=== PATIENT | male | born 1970 | race African-American/Black ===

== ENCOUNTER 2022-05-18 08:05 | Emergency (ER) | payer OTHER ==
[~2022-05-18] VITALS: Ht 190.5 cm; Wt 113.6 kg
[2022-05-18] MEDS ORDERED: GABA-1216 PO (08:12)
[2022-05-18] MEDS ORDERED: LISI2.5T13 PO (08:12)
[2022-05-18] MEDS ORDERED: CYCL-448 PO (08:17)
[2022-05-18] MEDS ORDERED: HYDR-4723 PO (08:17)
[2022-05-18 08:48] LABS: COVID AG,FIA SOURCE NASAL SWAB
[2022-05-18] MEDS ORDERED: PredniSONE 20 MG TABLET PO ONE (09:30)
[2022-05-18 09:46] LABS: INFLUENZA TYPE A NEGATIVE FOR TYPE A (NEGATIVE)
[2022-05-18 10:13] LABS: INFLUENZA TYPE B POSITIVE FOR TYPE B (NEGATIVE)
[2022-05-18 10:15] VITALS: BP 168/104
[2022-05-18 10:18] LABS: BASOPHILS % (AUTO) 0.9 % (0.0-2.0); EOSINOPHILS % (AUTO) 9.2 % (1.0-6.0); HEMATOCRIT 46.3 % (41-53); HEMOGLOBIN 15.2 g/dL (13.5-17.5); LYMPHOCYTES # (AUTO) 1.8 K/uL (1.0-4.8); LYMPHOCYTES % (AUTO) 36.4 % (22.0-44.0); MEAN CORPUSCULAR HEMOGLOBIN 29.3 pg (26.0-34.0); MEAN CORPUSCULAR HGB CONC 32.7 G/dL (31.0-37.0); MEAN CORPUSCULAR VOLUME 90 fL (80-100); MONOCYTES # (AUTO) 0.5 K/uL (0.1-1.0); MONOCYTES % (AUTO) 8.9 % (2.0-9.0); NEUTROPHILS # (AUTO) 2.3 K/uL (1.8-7.7); NEUTROPHILS % (AUTO) 44.6 % (40.0-70.0); PLATELET COUNT (AUTO) 265 K/uL (150-450); RED BLOOD CELL COUNT(AUTO) 5.17 MIL/uL (4.50-5.90); RED CELL DISTRIBUTION WIDTH 14.1 % (11.5-14.5)
[2022-05-18 10:20] LABS: ANION GAP 4 mmol/L (8-16); CARBON DIOXIDE 30 mmol/L (22-29); CHLORIDE 102 mmol/L (98-107); CREATININE 0.95 mg/dL (0.60-1.30); GLOMERULAR FILTR. RATE CALC > 60 mL/min (>60); GLUCOSE,RANDOM 95 mg/dL (70-110); POTASSIUM 3.8 mmol/L (3.5-5.1); SODIUM SERUM 136 mmol/L (136-145); UREA NITROGEN, BLOOD 12 mg/dL (7-18)
[2022-05-18 10:26] LABS: ALANINE AMINOTRANSFERASE 28 U/L (12-78); ALBUMIN 4.2 g/dL (3.4-5.0); ALKALINE PHOSPHATASE 75 U/L (46-116); ASPARTATE AMINOTRANSFERASE 23 U/L (15-37); BILIRUBIN,TOTAL 0.5 mg/dL (0.1-1.0); TOTAL PROTEIN, SERUM 8.5 g/dL (6.4-8.2)
[2022-05-18] MEDS ORDERED: NIRM1TAB4 PO ×2 (10:43→11:22)
[2022-05-21] MEDS ORDERED: NALO25TA4 PO (16:55)
[2022-05-21] MEDS ORDERED: GABA600T10 PO (16:55)
[2022-05-23] MEDS ORDERED: AMLO-258 PO (10:18)
[2022-05-23] MEDS ORDERED: AMOX1TAB15 PO (10:18)
[2022-05-23] MEDS ORDERED: BENZ-227 PO (10:22)
== END 2022-05-18 11:10 | disposition home or self-care (01) ==
LOC: EMS 08:08
DX: U07.1 COVID-19 (principal); J33.9 Nasal polyp, unspecified; J10.1 Influenza due to other identified influenza virus with other respiratory manifestations; I10 Essential (primary) hypertension; Z88.6 Allergy status to analgesic agent; Z20.822 Contact with and (suspected) exposure to COVID-19
CPT/HCPCS: 99283; 87426; 80053; 85025; 87804; 36415; J7512

== ENCOUNTER 2022-07-04 06:32 | Emergency (ER) | payer OTHER ==
[~2022-07-04] VITALS: Ht 190.5 cm; Wt 100.0 kg
[~2022-07-04 06:32] MED LIST: AMLO-258 PO; AMOX1TAB15 PO; BENZ-227 PO; LISI2.5T13 PO
[2022-07-04 06:37] VITALS: BP 137/84
[2022-07-04] MEDS ORDERED: FLUTICASONE PROPIONATE 50 MCG/SPRAY 16 GM NASAL SPRAY NASAL ONE (08:00)
[2022-07-04] MEDS ORDERED: AMOX TR/POT CLAV 875 MG/125 MG TABLET PO ONE (08:00)
[2022-07-04] MEDS ORDERED: [UNRECOGNIZED DRUG - OTHER] PO ONE (08:00)
[2022-07-04] MEDS ORDERED: PredniSONE 20 MG TABLET PO ONE (08:00)
[2022-07-04] MEDS ORDERED: LORATADINE PO ONE (08:00)
[2022-07-04] MEDS ORDERED: P-EP-24 PO (08:08)
[2022-07-04] MEDS ORDERED: FLUT16SP NASAL (08:08)
[2022-07-04] MEDS ORDERED: AMOX1TAB16 PO (08:08)
[2022-07-04] MEDS ORDERED: PRED-554 PO (08:08)
== END 2022-07-04 08:24 | disposition home or self-care (01) ==
LOC: EMS 06:34
DX: J01.90 Acute sinusitis, unspecified (principal); J33.9 Nasal polyp, unspecified; I10 Essential (primary) hypertension; Z88.6 Allergy status to analgesic agent; Z98.890 Other specified postprocedural states
CPT/HCPCS: 99284; J7512

== ENCOUNTER 2024-09-05 15:12 | Emergency (ER) | payer OTHER ==
[~2024-09-05] VITALS: Ht 190.5 cm; Wt 120.5 kg
[~2024-09-05 15:12] MED LIST changes: +AMOX-457 PO; -AMOX1TAB15 PO; -BENZ-227 PO; +FLUT16SP NASAL; +P-EP-24 PO; +PRED-554 PO
[2024-09-05 15:16] VITALS: TEMP 98.4
[2024-09-05] MEDS ORDERED: HYDR-4062 PO (15:18)
[2024-09-05] MEDS ORDERED: GABA-1181 PO (15:18)
[2024-09-05] MEDS ORDERED: ATOR40TA28 PO (15:18)
[2024-09-05] MEDS ORDERED: CYCL-448 PO (15:18)
[2024-09-05] MEDS ORDERED: DOCU100C33 PO (15:18)
[2024-09-05 15:31] LABS: COVID AG,FIA SOURCE NASAL SWAB
[2024-09-05 15:48] LABS: BASOPHILS % (AUTO) 0.6 % (0.0-2.0); EOSINOPHILS % (AUTO) 7.3 % (1.0-6.0); HEMATOCRIT 44.5 % (41-53); HEMOGLOBIN 14.8 g/dL (13.5-17.5); LYMPHOCYTES # (AUTO) 2.2 K/uL (1.0-4.8); LYMPHOCYTES % (AUTO) 30.6 % (22.0-44.0); MEAN CORPUSCULAR HEMOGLOBIN 28.7 pg (26.0-34.0); MEAN CORPUSCULAR HGB CONC 33.3 G/dL (31.0-37.0); MEAN CORPUSCULAR VOLUME 86 fL (80-100); MONOCYTES # (AUTO) 0.5 K/uL (0.1-1.0); MONOCYTES % (AUTO) 7.3 % (2.0-9.0); NEUTROPHILS # (AUTO) 3.8 K/uL (1.8-7.7); NEUTROPHILS % (AUTO) 54.2 % (40.0-70.0); PLATELET COUNT (AUTO) 336 K/uL (150-450); RED BLOOD CELL COUNT(AUTO) 5.16 MIL/uL (4.50-5.90); RED CELL DISTRIBUTION WIDTH 14.2 % (11.5-14.5); WHITE BLOOD COUNT (AUTO) 7.1 K/uL (4.5-11.0)
[2024-09-05 15:55] LABS: ANION GAP 8 mmol/L (8-16); CALCIUM, TOTAL 8.8 mg/dL (8.8-10.5); CARBON DIOXIDE 26 mmol/L (22-29); CHLORIDE 103 mmol/L (98-107); CREATININE 0.96 mg/dL (0.60-1.30); GLOMERULAR FILTR. RATE CALC > 60 mL/min (>60); GLUCOSE,RANDOM 102 mg/dL (70-110); POTASSIUM 3.6 mmol/L (3.5-5.1); SODIUM SERUM 137 mmol/L (136-145); UREA NITROGEN, BLOOD 8 mg/dL (7-18)
[2024-09-05 15:57] LABS: SARS-COV2 (COVID) ANTIGEN,FIA Negative (Negative)
[2024-09-05 16:35] LABS: INFLUENZA TYPE A INVALID. RESUBMIT. (NEGATIVE)
[2024-09-05 16:41] LABS: INFLUENZA TYPE B INVALID. RESUBMIT. (NEGATIVE)
[2024-09-05] MEDS: PB/HYOSCY/ATR/SCOP/LIDO/MAALOX 55 ML BOTTLE PO ONE (18:18)
[2024-09-05] MEDS: ONDANSETRON 4 MG TABLET PO ONE (18:18)
[2024-09-05] MEDS: ALBUTEROL SULFATE 2.5 MG/0.5 ML NEB SOLUTION NEB ONE (18:32)
[2024-09-05] MEDS: IPRATROPIUM BROMIDE 0.5 MG/2.5 ML NEB SOLUTION NEB ONE (18:32)
[2024-09-05 18:35] VITALS: PULSE 89; RESP 20; O2SAT 98
[2024-09-05 18:50] VITALS: PULSE 89; RESP 20; O2SAT 100
[2024-09-05 18:53] LABS: APPEARANCE,URINE CLEAR (CLEAR); BILIRUBIN,URINE NEGATIVE (NEGATIVE); COLOR,URINE YELLOW (YELLOW); GLUCOSE, URINE (UA) NEGATIVE (NEGATIVE); KETONES,URINE NEGATIVE (NEGATIVE); LEUKOCYTE ESTERASE ,URINE NEGATIVE (NEGATIVE); NITRATE,URINE NEGATIVE (NEGATIVE); OCCULT BLOOD,URINE NEGATIVE (NEGATIVE); PROTEIN,URINE 30-70 mg/dL (NEGATIVE); SPECIFIC GRAVITIY, URINE 1.033 (1.003-1.030); UROBILINOGEN,URINE <=1.0 mg/dL (<=1.0)
[2024-09-05 19:00] VITALS: BP 141/95; PULSE 97; RESP 16; O2SAT 100
[2024-09-05] MEDS ORDERED: GUAIFDM PO (19:11)
[2024-09-05] MEDS ORDERED: ALBU18HF12 IH (19:11)
[2024-09-05] MEDS ORDERED: OMEP-148 PO (19:11)
== END 2024-09-05 19:32 | disposition home or self-care (01) ==
LOC: EMS 15:12
DX: J20.9 Acute bronchitis, unspecified (principal); K29.70 Gastritis, unspecified, without bleeding; I10 Essential (primary) hypertension; Z88.6 Allergy status to analgesic agent; Z79.899 Other long term (current) drug therapy; Z20.822 Contact with and (suspected) exposure to COVID-19; Z98.890 Other specified postprocedural states
CPT/HCPCS: 99285; 76700; 71045; 87635; 87426; 80048; 81003; 83690; 85025; 87804; 36415; 94640; Q0162; J7613

== ENCOUNTER 2024-09-17 13:23 | Emergency (ER) | payer OTHER ==
[~2024-09-17] VITALS: Ht 190.5 cm; Wt 127.2 kg
[~2024-09-17 13:23] MED LIST changes: +ALBU18HF12 IH; -AMOX-457 PO; +ATOR40TA28 PO; +CYCL-448 PO; +DOCU100C33 PO; -FLUT16SP NASAL; +GABA-1181 PO; +GUAIFDM PO; +HYDR-4062 PO; -LISI2.5T13 PO; +OMEP-148 PO; -P-EP-24 PO; -PRED-554 PO
[2024-09-17 13:38] VITALS: TEMP 97.9
[2024-09-17] MEDS: PB/HYOSCY/ATR/SCOP/LIDO/MAALOX 55 ML BOTTLE PO ONE (19:04)
[2024-09-17] MEDS: FAMOTIDINE 20 MG/2 ML VIAL IVP ONE (19:04)
[2024-09-17] MEDS: SODIUM CHLORIDE 0.9% 1,000 ML IV ONE (19:04)
[2024-09-17 19:06] VITALS: PULSE 80; RESP 20; O2SAT 97
[2024-09-17] MEDS: ALBUTEROL SULFATE 2.5 MG/0.5 ML NEB SOLUTION NEB ONE (19:06)
[2024-09-17] MEDS: IPRATROPIUM BROMIDE 0.5 MG/2.5 ML NEB SOLUTION NEB ONE (19:06)
[2024-09-17 19:21] VITALS: PULSE 81; RESP 20; O2SAT 99
[2024-09-17 19:32] LABS: BASOPHILS % (AUTO) 1.3 % (0.0-2.0); EOSINOPHILS % (AUTO) 9.2 % (1.0-6.0); HEMATOCRIT 46.2 % (41-53); HEMOGLOBIN 15.4 g/dL (13.5-17.5); LYMPHOCYTES # (AUTO) 2.8 K/uL (1.0-4.8); MEAN CORPUSCULAR HEMOGLOBIN 29.4 pg (26.0-34.0); MEAN CORPUSCULAR HGB CONC 33.3 G/dL (31.0-37.0); MEAN CORPUSCULAR VOLUME 88 fL (80-100); MONOCYTES # (AUTO) 0.5 K/uL (0.1-1.0); MONOCYTES % (AUTO) 8.1 % (2.0-9.0); NEUTROPHILS # (AUTO) 2.5 K/uL (1.8-7.7); NEUTROPHILS % (AUTO) 38.4 % (40.0-70.0); PLATELET COUNT (AUTO) 319 K/uL (150-450); RED BLOOD CELL COUNT(AUTO) 5.24 MIL/uL (4.50-5.90); RED CELL DISTRIBUTION WIDTH 14.6 % (11.5-14.5); WHITE BLOOD COUNT (AUTO) 6.4 K/uL (4.5-11.0)
[2024-09-17 20:08] LABS: ANION GAP 3 mmol/L (8-16); CARBON DIOXIDE 31 mmol/L (22-29); CHLORIDE 103 mmol/L (98-107); CREATININE 1.01 mg/dL (0.60-1.30); GLOMERULAR FILTR. RATE CALC > 60 mL/min (>60); GLUCOSE,RANDOM 106 mg/dL (70-110); POTASSIUM 3.6 mmol/L (3.5-5.1); SODIUM SERUM 137 mmol/L (136-145); UREA NITROGEN, BLOOD 11 mg/dL (7-18)
[2024-09-17 20:23] LABS: ALBUMIN 3.8 g/dL (3.4-5.0); BILIRUBIN,DIRECT 0.1 mg/dL (0.00-0.20); BILIRUBIN,TOTAL 0.6 mg/dL (0.1-1.0); TOTAL PROTEIN, SERUM 7.6 g/dL (6.4-8.2)
[2024-09-17] MEDS ORDERED: POLY119P3 PO (23:07)
[2024-09-17 23:20] VITALS: BP 141/67; PULSE 78; RESP 16; O2SAT 96
[2024-09-17] MEDS ORDERED: TraMADol HCL 50 MG TABLET PO ONE (23:30)
[2024-09-17 23:32] LABS: APPEARANCE,URINE CLEAR (CLEAR); BILIRUBIN,URINE NEGATIVE (NEGATIVE); COLOR,URINE YELLOW (YELLOW); GLUCOSE, URINE (UA) NEGATIVE (NEGATIVE); LEUKOCYTE ESTERASE ,URINE NEGATIVE (NEGATIVE); NITRATE,URINE NEGATIVE (NEGATIVE); OCCULT BLOOD,URINE NEGATIVE (NEGATIVE); PH,URINE 6.5 (5.0-8.0); PROTEIN,URINE 30-70 mg/dL (NEGATIVE); SPECIFIC GRAVITIY, URINE 1.034 (1.003-1.030); UROBILINOGEN,URINE <=1.0 mg/dL (<=1.0)
== END 2024-09-17 23:47 | disposition home or self-care (01) ==
LOC: EMS 13:28
DX: K29.70 Gastritis, unspecified, without bleeding (principal); K59.00 Constipation, unspecified; I10 Essential (primary) hypertension; Z87.19 Personal history of other diseases of the digestive system; Z88.6 Allergy status to analgesic agent; Z79.899 Other long term (current) drug therapy
CPT/HCPCS: 99285; 74176; 96374; 96361; 80048; 80076; 81003; 83690; 85025; 36415; 94640; 74018; 93005; J3490; J7030; 94760; J7613